=== PATIENT | female | born 1980 | race Caucasian/White ===

== ENCOUNTER 2023-06-30 10:21 | Outpatient (RCR) | payer OTHER, SELFPAY ==
[2021-10-13 14:44] LABS: Basophils Percent Auto 1.2 % (0.0-3.0); Hematocrit 37.2 % (33.0-51.0); Hemoglobin* 11.7 gm/dL (12.0-16.0); Immature Granulocytes Abs Auto 0.01 K/uL (0.00-0.30); Lymphocytes Percent Auto 26.1 % (20-44); Mean Corpuscular HGB Conc 32 gm/dL (32-36); Mean Corpuscular Hemoglobin 31 pg (26-34); Mean Corpuscular Volume 98 fL (80-100); Neutrophils Percent Auto 61.5 % (42.0-72.0); Platelet Count* 193 K/uL (140-440); RDW Coefficient of Variation % 13.2 % (11.5-15.5); Red Blood Count 3.78 m/uL (4.00-5.20); White Blood Count* 4.26 K/uL (4.50-11.00)
[2021-10-13 14:47] LABS: Slide Review Reflex No
[2021-10-13 14:57] LABS: Albumin* 4.3 g/dL (3.3-5.0)
[2021-10-13 15:00] LABS: Creatinine* 0.8 mg/dL (0.5-1.5)
[2021-10-13 15:01] LABS: Alanine Aminotransferase* 29 U/L (4-35); Alkaline Phosphatase* 67 U/L (40-150); Aspartate Amino Transferase* 36 U/L (12-35); Bilirubin Total* 0.7 mg/dL (0.1-1.5); Total Protein* 6.8 g/dL (6.0-8.3)
[2021-10-13 15:07] LABS: C Reactive Protein* < 0.5 mg/dL (0.5-1.0)
[2021-10-13 15:30] LABS: Erythrocyte SedimentationRate* 3 mm/hr (2-20)
[2021-12-04 13:14] LABS: Hemoglobin* 12.2 gm/dL (12.0-16.0); Immature Granulocytes Abs Auto 0.01 K/uL (0.00-0.30); Lymphocytes Percent Auto 30.5 % (20-44); Mean Corpuscular HGB Conc 31 gm/dL (32-36); Mean Corpuscular Hemoglobin 31 pg (26-34); Mean Corpuscular Volume 98 fL (80-100); Monocytes Percent Auto 11.3 % (0.0-11.0); Platelet Count* 188 K/uL (140-440); RDW Coefficient of Variation % 13.3 % (11.5-15.5); White Blood Count* 4.16 K/uL (4.50-11.00)
[2021-12-04 13:21] LABS: Slide Review Reflex No
[2021-12-04 13:37] LABS: Creatinine* 0.8 mg/dL (0.5-1.5); Estimated Glomerular Filt Rate 94 ml/min
[2021-12-04 13:38] LABS: Alanine Aminotransferase* 26 U/L (4-35); Aspartate Amino Transferase* 27 U/L (12-35)
[2021-12-04 13:55] LABS: C Reactive Protein* < 0.5 mg/dL (0.5-1.0)
[2021-12-04 14:32] LABS: Erythrocyte SedimentationRate* 8 mm/hr (2-20)
[2022-02-03 12:53] LABS: Basophils Percent Auto 0.8 % (0.0-3.0); Hematocrit 38.7 % (33.0-51.0); Hemoglobin* 12.3 gm/dL (12.0-16.0); Immature Granulocytes Abs Auto 0.01 K/uL (0.00-0.30); Lymphocytes Percent Auto 30.3 % (20-44); Mean Corpuscular HGB Conc 32 gm/dL (32-36); Mean Corpuscular Hemoglobin 31 pg (26-34); Mean Corpuscular Volume 97 fL (80-100); Neutrophils Percent Auto 55.6 % (42.0-72.0); Platelet Count* 190 K/uL (140-440); RDW Coefficient of Variation % 13.1 % (11.5-15.5)
[2022-02-03 12:58] LABS: Slide Review Reflex No
[2022-02-03 13:14] LABS: Alanine Aminotransferase* 24 U/L (4-35); Aspartate Amino Transferase* 29 U/L (12-35); Creatinine* 0.8 mg/dL (0.5-1.5); Estimated Glomerular Filt Rate 93 ml/min
[2022-02-03 13:24] LABS: C Reactive Protein* < 0.5 mg/dL (0.5-1.0)
[2022-02-03 14:50] LABS: Erythrocyte SedimentationRate* 5 mm/hr (2-20)
[2022-05-24 12:25] LABS: Basophils Percent Auto 0.7 % (0.0-3.0); Hematocrit 37.4 % (33.0-51.0); Hemoglobin* 11.8 gm/dL (12.0-16.0); Immature Granulocytes Pct Auto 0.7 %; Lymphocytes Percent Auto 32.9 % (20-44); Mean Corpuscular HGB Conc 32 gm/dL (32-36); Mean Corpuscular Hemoglobin 30 pg (26-34); Mean Corpuscular Volume 96 fL (80-100); Monocytes Percent Auto 12.4 % (0.0-11.0); Neutrophils Percent Auto 53.3 % (42.0-72.0); Platelet Count* 177 K/uL (140-440); Red Blood Count 3.91 m/uL (4.00-5.20); White Blood Count* 4.04 K/uL (4.50-11.00)
[2022-05-24 12:34] LABS: Slide Review Reflex No
[2022-05-24 12:56] LABS: Alanine Aminotransferase* 24 U/L (4-35); Aspartate Amino Transferase* 25 U/L (12-35); Creatinine* 0.7 mg/dL (0.5-1.5); Estimated Glomerular Filt Rate 109 ml/min
[2022-05-24 12:59] LABS: C Reactive Protein* 0.5 mg/dL (0.5-1.0)
[2022-05-24 13:18] LABS: Erythrocyte SedimentationRate* 3 mm/hr (2-20)
[2022-08-03 14:37] LABS: Basophils Absolute Auto 0.04 K/uL (0.00-0.30); Basophils Percent Auto 0.9 % (0.0-3.0); Hematocrit 37.7 % (33.0-51.0); Hemoglobin* 12.1 gm/dL (12.0-16.0); Immature Granulocytes Abs Auto 0.01 K/uL (0.00-0.30); Immature Granulocytes Pct Auto 0.2 %; Lymphocytes Absolute Auto 1.05 K/uL (0.90-2.90); Mean Corpuscular HGB Conc 32 gm/dL (32-36); Mean Corpuscular Hemoglobin 31 pg (26-34); Mean Corpuscular Volume 96 fL (80-100); Monocytes Percent Auto 10.3 % (0.0-11.0); Neutrophils Percent Auto 65.6 % (42.0-72.0); Platelet Count* 185 K/uL (140-440); RDW Coefficient of Variation % 12.8 % (11.5-15.5); Red Blood Count 3.91 m/uL (4.00-5.20); White Blood Count* 4.57 K/uL (4.50-11.00)
[2022-08-03 14:50] LABS: Slide Review Reflex No
[2022-08-03 14:51] LABS: Creatinine* 0.8 mg/dL (0.5-1.5); Estimated Glomerular Filt Rate 93 ml/min
[2022-08-03 14:52] LABS: Alanine Aminotransferase* 28 U/L (4-35); Aspartate Amino Transferase* 28 U/L (12-35)
[2022-08-03 14:55] LABS: C Reactive Protein* 0.8 mg/dL (0.5-1.0)
[2022-08-03 15:44] LABS: Erythrocyte SedimentationRate* 4 mm/hr (2-20)
[2022-11-11 11:08] LABS: Basophils Absolute Auto 0.05 K/uL (0.00-0.30); Basophils Percent Auto 0.8 % (0.0-3.0); Hemoglobin* 12.5 gm/dL (12.0-16.0); Immature Granulocytes Abs Auto 0.03 K/uL (0.00-0.30); Immature Granulocytes Pct Auto 0.5 %; Lymphocytes Absolute Auto 1.33 K/uL (0.90-2.90); Lymphocytes Percent Auto 22.1 % (20-44); Mean Corpuscular HGB Conc 32 gm/dL (32-36); Mean Corpuscular Hemoglobin 31 pg (26-34); Mean Corpuscular Volume 96 fL (80-100); Monocytes Percent Auto 11.9 % (0.0-11.0); Neutrophils Percent Auto 64.7 % (42.0-72.0); Platelet Count* 229 K/uL (140-440); RDW Coefficient of Variation % 13.1 % (11.5-15.5); Red Blood Count 4.08 m/uL (4.00-5.20); White Blood Count* 6.03 K/uL (4.50-11.00)
[2022-11-11 11:10] LABS: Slide Review Reflex No
[2022-11-11 11:24] LABS: Alanine Aminotransferase* 22 U/L (4-35); Aspartate Amino Transferase* 34 U/L (12-35); Creatinine* 0.7 mg/dL (0.5-1.5); Estimated Glomerular Filt Rate 109 ml/min
[2022-11-11 11:28] LABS: C Reactive Protein* 0.7 mg/dL (0.5-1.0)
[2022-11-11 11:46] LABS: Erythrocyte SedimentationRate* 6 mm/hr (2-20)
[2023-01-05 10:25] LABS: Basophils Percent Auto 0.7 % (0.0-3.0); Hematocrit 38.2 % (33.0-51.0); Hemoglobin* 12.2 gm/dL (12.0-16.0); Immature Granulocytes Pct Auto 0.3 %; Lymphocytes Percent Auto 22.7 % (20-44); Mean Corpuscular HGB Conc 32 gm/dL (32-36); Mean Corpuscular Hemoglobin 30 pg (26-34); Mean Corpuscular Volume 95 fL (80-100); Monocytes Percent Auto 13.3 % (0.0-11.0); Platelet Count* 170 K/uL (140-440); RDW Coefficient of Variation % 12.9 % (11.5-15.5); Red Blood Count 4.03 m/uL (4.00-5.20)
[2023-01-05 10:27] LABS: Slide Review Reflex No
[2023-01-05 10:44] LABS: Alanine Aminotransferase* 34 U/L (4-35); Aspartate Amino Transferase* 43 U/L (12-35); Creatinine* 0.7 mg/dL (0.5-1.5); Estimated Glomerular Filt Rate 109 ml/min
[2023-01-05 10:47] LABS: C Reactive Protein* 0.9 mg/dL (0.5-1.0)
[2023-01-05 11:20] LABS: Erythrocyte SedimentationRate* 4 mm/hr (2-20)
[2023-01-14 18:56] LABS: Hep A Ab, IgM Negative (Negative); Hep B Core Ab, IgM Negative (Negative); Hep B Surface Antigen Negative (Negative); Hep C Ab by CIA Index 0.05 IV; Hep C Ab by CIA Interp Negative (Negative)
[2023-03-28 12:31] LABS: Basophils Percent Auto 0.8 % (0.0-3.0); Hematocrit 39.2 % (33.0-51.0); Hemoglobin* 12.3 gm/dL (12.0-16.0); Immature Granulocytes Pct Auto 0.3 %; Lymphocytes Percent Auto 30.6 % (20-44); Mean Corpuscular HGB Conc 31 gm/dL (32-36); Mean Corpuscular Hemoglobin 30 pg (26-34); Mean Corpuscular Volume 96 fL (80-100); Monocytes Percent Auto 14.2 % (0.0-11.0); Neutrophils Percent Auto 54.1 % (42.0-72.0); Platelet Count* 177 K/uL (140-440); RDW Coefficient of Variation % 12.9 % (11.5-15.5); Red Blood Count 4.08 m/uL (4.00-5.20); Slide Review Reflex No
[2023-03-28 12:46] LABS: Aspartate Amino Transferase* 26 U/L (12-35); Creatinine* 0.8 mg/dL (0.5-1.5); Estimated Glomerular Filt Rate 93 ml/min
[2023-03-28 12:47] LABS: Alanine Aminotransferase* 22 U/L (4-35)
[2023-03-28 12:50] LABS: C Reactive Protein* 0.7 mg/dL (0.5-1.0)
[2023-03-28 13:38] LABS: Erythrocyte SedimentationRate* 3 mm/hr (2-20)
[2023-06-30 10:39] LABS: Basophils Percent Auto 0.8 % (0.0-3.0); Hematocrit 40.1 % (33.0-51.0); Hemoglobin* 12.8 gm/dL (12.0-16.0); Immature Granulocytes Pct Auto 0.3 %; Lymphocytes Percent Auto 29.6 % (20-44); Mean Corpuscular HGB Conc 32 gm/dL (32-36); Mean Corpuscular Hemoglobin 29 pg (26-34); Mean Corpuscular Volume 92 fL (80-100); Monocytes Percent Auto 12.9 % (0.0-11.0); Neutrophils Percent Auto 56.4 % (42.0-72.0); Platelet Count* 207 K/uL (140-440); RDW Coefficient of Variation % 12.8 % (11.5-15.5); Red Blood Count 4.37 m/uL (4.00-5.20); White Blood Count* 3.95 K/uL (4.50-11.00)
[2023-06-30 10:40] LABS: Slide Review Reflex No
[2023-06-30 10:50] LABS: Alanine Aminotransferase* 21 U/L (4-35); Aspartate Amino Transferase* 24 U/L (12-35); Creatinine* 0.7 mg/dL (0.5-1.5); Estimated Glomerular Filt Rate 109 ml/min
[2023-06-30 10:57] LABS: C Reactive Protein* < 0.5 mg/dL (0.5-1.0)
[2023-06-30 11:29] LABS: Erythrocyte SedimentationRate* 7 mm/hr (2-20)
== END 2024-01-18 14:45 | disposition home or self-care (01) ==
LOC: LAB 10:21
PROVIDERS: PCP Internal Medicine; Visit Provider Internal Medicine Rheumatology
DX: M06.9 Rheumatoid arthritis, unspecified (principal); Z79.899 Other long term (current) drug therapy
CPT/HCPCS: 36415; 80074; 80076; 82565; 84450; 84460; 85025; 85651; 86140; 86141; 86480

== ENCOUNTER 2023-10-06 09:31 | Outpatient (REF) | payer OTHER, SELFPAY ==
[2023-10-06 10:00] LABS: Alanine Aminotransferase* 23 U/L (4-35); Aspartate Amino Transferase* 25 U/L (12-35); Creatinine* 0.8 mg/dL (0.5-1.5); Estimated Glomerular Filt Rate 93 ml/min
[2023-10-06 10:02] LABS: Basophils Percent Auto 0.7 % (0.0-3.0); Hematocrit 39.8 % (33.0-51.0); Hemoglobin* 12.6 gm/dL (12.0-16.0); Immature Granulocytes Pct Auto 0.9 %; Lymphocytes Percent Auto 28.1 % (20-44); Mean Corpuscular HGB Conc 32 gm/dL (32-36); Mean Corpuscular Hemoglobin 29 pg (26-34); Mean Corpuscular Volume 91 fL (80-100); Monocytes Percent Auto 10.5 % (0.0-11.0); Neutrophils Percent Auto 59.8 % (42.0-72.0); Platelet Count* 207 K/uL (140-440); RDW Coefficient of Variation % 12.9 % (11.5-15.5); Red Blood Count 4.36 m/uL (4.00-5.20); White Blood Count* 4.48 K/uL (4.50-11.00)
[2023-10-06 10:03] LABS: C Reactive Protein* 0.5 mg/dL (0.5-1.0); Slide Review Reflex No
[2023-10-06 10:32] LABS: Erythrocyte SedimentationRate* 7 mm/hr (2-20)
== END 2023-10-06 09:32 | disposition home or self-care (01) ==
LOC: NPINS 09:31
PROVIDERS: PCP Internal Medicine; Visit Provider Internal Medicine Rheumatology
DX: M05.9 Rheumatoid arthritis with rheumatoid factor, unspecified (principal); D72.819 Decreased white blood cell count, unspecified; Z79.899 Other long term (current) drug therapy
CPT/HCPCS: 82565; 84450; 84460; 85025; 85651; 86140

== ENCOUNTER 2024-01-30 22:10 | Outpatient (REF) | payer OTHER, SELFPAY ==
[2024-01-30 23:07] LABS: Basophils Absolute Auto 0.04 K/uL (0.00-0.30); Basophils Percent Auto 0.8 % (0.0-3.0); Hematocrit 40.9 % (33.0-51.0); Hemoglobin* 12.9 gm/dL (12.0-16.0); Immature Granulocytes Abs Auto 0.03 K/uL (0.00-0.30); Immature Granulocytes Pct Auto 0.6 %; Lymphocytes Absolute Auto 1.06 K/uL (0.90-2.90); Lymphocytes Percent Auto 20.3 % (20-44); Mean Corpuscular HGB Conc 32 gm/dL (32-36); Mean Corpuscular Hemoglobin 29 pg (26-34); Mean Corpuscular Volume 92 fL (80-100); Monocytes Percent Auto 9.8 % (0.0-11.0); Neutrophils Absolute Auto 3.59 K/uL (1.7-7.0); Neutrophils Percent Auto 68.5 % (42.0-72.0); Platelet Count* 223 K/uL (140-440); RDW Coefficient of Variation % 13.3 % (11.5-15.5); Red Blood Count 4.46 m/uL (4.00-5.20); White Blood Count* 5.23 K/uL (4.50-11.00)
[2024-01-30 23:28] LABS: Aspartate Amino Transferase* 26 U/L (12-35); Creatinine* 0.8 mg/dL (0.5-1.5); Estimated Glomerular Filt Rate 92 ml/min
[2024-01-30 23:29] LABS: Alanine Aminotransferase* 25 U/L (4-35)
[2024-01-30 23:37] LABS: Slide Review Reflex No
[2024-01-30 23:44] LABS: C Reactive Protein* < 0.5 mg/dL (0.5-1.0)
[2024-01-31 00:11] LABS: Erythrocyte SedimentationRate* 4 mm/hr (2-20)
== END 2024-01-30 22:11 | disposition home or self-care (01) ==
LOC: NPINS 22:10
PROVIDERS: PCP Internal Medicine; Visit Provider Internal Medicine Rheumatology
DX: M05.9 Rheumatoid arthritis with rheumatoid factor, unspecified (principal); D72.819 Decreased white blood cell count, unspecified; Z79.899 Other long term (current) drug therapy
CPT/HCPCS: 82565; 84450; 84460; 85025; 85651; 86140

== ENCOUNTER 2024-04-12 15:12 | Outpatient (REF) | payer OTHER, SELFPAY ==
[2024-04-12 17:12] LABS: Basophils Percent Auto 1.4 % (0.0-3.0); Eosinophils Percent Auto 0.5 % (0.0-7.0); Hematocrit 44.8 % (33.0-51.0); Immature Granulocytes Pct Auto 0.2 %; Mean Corpuscular HGB Conc 31 gm/dL (32-36); Mean Corpuscular Hemoglobin 29 pg (26-34); Mean Corpuscular Volume 92 fL (80-100); Monocytes Percent Auto 10.6 % (0.0-11.0); Neutrophils Percent Auto 57.3 % (42.0-72.0); Platelet Count* 206 K/uL (140-440); RDW Coefficient of Variation % 13.2 % (11.5-15.5); Red Blood Count 4.88 m/uL (4.00-5.20); White Blood Count* 4.34 K/uL (4.50-11.00)
[2024-04-12 17:16] LABS: Slide Review Reflex No
[2024-04-12 17:31] LABS: Creatinine* 0.8 mg/dL (0.5-1.5); Estimated Glomerular Filt Rate 92 ml/min
[2024-04-12 17:32] LABS: Alanine Aminotransferase* 22 U/L (4-35); Aspartate Amino Transferase* 22 U/L (12-35)
[2024-04-12 17:42] LABS: Erythrocyte SedimentationRate* 2 mm/hr (2-20)
[2024-04-12 17:53] LABS: C Reactive Protein* < 0.5 mg/dL (0.5-1.0)
[2024-04-15 06:04] LABS: QuantiFERON Mitogen minus NIL 9.76 IU/mL; QuantiFERON NIL 0.24 IU/mL; Quantiferon TB Gold Plus Negative (Negative)
== END 2024-04-12 15:13 | disposition home or self-care (01) ==
LOC: NPINS 15:12
PROVIDERS: Internal Medicine Rheumatology; PCP Internal Medicine; Visit Provider Internal Medicine
DX: D72.819 Decreased white blood cell count, unspecified (principal); Z79.899 Other long term (current) drug therapy
CPT/HCPCS: 82565; 84450; 84460; 85025; 85651; 86140; 86480

== ENCOUNTER 2024-07-17 14:43 | Outpatient (CLI) | payer OTHER, SELFPAY ==
[2024-07-17 21:50] LABS: Basophils Absolute Auto 0.03 K/uL (0.00-0.30); Basophils Percent Auto 0.5 % (0.0-3.0); Hematocrit 39.5 % (33.0-51.0); Hemoglobin* 12.8 gm/dL (12.0-16.0); Immature Granulocytes Abs Auto 0.03 K/uL (0.00-0.30); Immature Granulocytes Pct Auto 0.5 %; Lymphocytes Absolute Auto 1.23 K/uL (0.90-2.90); Lymphocytes Percent Auto 22.1 % (20-44); Mean Corpuscular HGB Conc 32 gm/dL (32-36); Mean Corpuscular Hemoglobin 30 pg (26-34); Mean Corpuscular Volume 91 fL (80-100); Monocytes Percent Auto 10.3 % (0.0-11.0); Neutrophils Percent Auto 66.6 % (42.0-72.0); Platelet Count* 235 K/uL (140-440); RDW Coefficient of Variation % 13.1 % (11.5-15.5); Red Blood Count 4.32 m/uL (4.00-5.20); White Blood Count* 5.56 K/uL (4.50-11.00)
[2024-07-17 21:52] LABS: Alanine Aminotransferase* 24 U/L (4-35); Aspartate Amino Transferase* 23 U/L (12-35); Creatinine* 0.8 mg/dL (0.5-1.5); Estimated Glomerular Filt Rate 92 ml/min
[2024-07-17 22:22] LABS: C Reactive Protein* < 0.5 mg/dL (0.5-1.0)
[2024-07-17 22:41] LABS: Slide Review Reflex No
[2024-07-18 00:23] LABS: Erythrocyte SedimentationRate* 5 mm/hr (2-20)
== END 2024-07-17 14:44 | disposition home or self-care (01) ==
LOC: NPINS 14:43
PROVIDERS: PCP Internal Medicine; Referring Provider Internal Medicine; Visit Provider Internal Medicine Rheumatology
DX: Z79.899 Other long term (current) drug therapy (principal)
CPT/HCPCS: 82565; 84450; 84460; 85025; 85651; 86140

== ENCOUNTER 2024-10-30 06:59 | Outpatient (CLI) | payer OTHER, SELFPAY ==
--- NOTE | 2024-10-30 07:15 | CRLHL7_ITS ---
For Patients: As a result of the Century Cures Act, medical imaging exams and procedure reports are released immediately into your electronic medical record. You may view this report before your referring provider. If you have questions, please contact your health care provider. Indication: Low back pain Technique: Multiplanar, multisequence, MRI of the lumbar spine, obtained without contrast. Comparison: Lumbar spine x-ray 10/19/2024 Findings: Accentuated lumbar lordosis, with grade 1 anterolisthesis at L4-5, secondary to chronic bilateral L4 spondylolysis. No acute osseous abnormality, or suspicious bone marrow lesion. The conus medullaris terminates at L1. Partially visualized small T2 hyperintense/cystic focus within the right hepatic lobe. No suspicious findings in the paravertebral soft tissues. Included SI joints are unremarkable. T12-L1 through L3-L4: No neural foraminal or spinal canal stenosis. L4-L5: Disc unroofing/bulge, left subarticular/foraminal cranial disc extrusion, facet arthropathy. Moderate left and severe right neural foraminal stenosis with likely impingement of the exiting right L4 nerve root. No spinal canal stenosis. L5-S1: Mild diffuse disc bulge with central disc protrusion contacting but not frankly impinging the descending left S1 nerve root along the lateral recess. Mild facet arthropathy. No neural foraminal or central spinal canal stenosis. Impression: 1. At L4-L5, chronic bilateral L4 spondylolysis, grade 1 anterolisthesis, disc unroofing/bulge and right subarticular-foraminal cranial disc extrusion contribute to moderate left and severe right neural foraminal stenosis with likely impingement of the exiting right L4 nerve root. 2. At L5-S1, central disc protrusion contacts but does not frankly impinge the descending left S1 nerve root along the lateral recess. Dictated by Marie Reis MD @ 10/30/2024 1:38:06 PM (Electronically Signed)
== END 2024-10-30 07:00 | disposition home or self-care (01) ==
PROVIDERS: PCP Nurse Practitioner Family; Visit Provider Nurse Practitioner Family
DX: M54.50 Low back pain, unspecified (principal); M47.896 Other spondylosis, lumbar region; M51.27 Other intervertebral disc displacement, lumbosacral region; M48.061 Spinal stenosis, lumbar region without neurogenic claudication; M51.369 Other intervertebral disc degeneration, lumbar region without mention of lumbar back pain or lower extremity pain
CPT/HCPCS: 72148

== ENCOUNTER 2024-11-13 04:37 | Outpatient (CLI) | payer OTHER, SELFPAY | END 2024-11-13 04:38 | disposition home or self-care (01) | PROVIDERS: PCP Nurse Practitioner Family; Visit Provider Nurse Practitioner Family | DX: M54.50 Low back pain, unspecified (principal); M54.16 Radiculopathy, lumbar region; G89.29 Other chronic pain | CPT/HCPCS: 82565; 84450; 84460; 85025; 85651; 86140 ==

== ENCOUNTER 2024-11-20 09:46 | Outpatient (CLI) | payer OTHER, SELFPAY | END 2024-11-20 09:47 | disposition home or self-care (01) | LOC: INJ CL 09:47 | PROVIDERS: PCP Nurse Practitioner Family; Visit Provider Family Medicine | DX: M54.16 Radiculopathy, lumbar region (principal); M51.26 Other intervertebral disc displacement, lumbar region | CPT/HCPCS: 64483; J1100; Q9966 ==

== ENCOUNTER 2024-12-11 08:18 | Outpatient (CLI) | payer OTHER, SELFPAY | END 2024-12-11 08:19 | disposition home or self-care (01) | LOC: INJ CL 08:19 | PROVIDERS: PCP Nurse Practitioner Family; Visit Provider Family Medicine | DX: M54.16 Radiculopathy, lumbar region (principal); M51.26 Other intervertebral disc displacement, lumbar region | CPT/HCPCS: 64483; J0702; Q9966 ==

== ENCOUNTER 2024-12-25 08:48 | Outpatient (CLI) | payer OTHER, SELFPAY ==
[2024-12-27 02:32] LABS: HPV Source Vaginal
[2024-12-29 12:10] LABS: Pap Test Digital Imaging Done
== END 2024-12-25 08:49 | disposition home or self-care (01) ==
PROVIDERS: PCP Nurse Practitioner Family; Visit Provider Nurse Practitioner Family
DX: L65.9 Nonscarring hair loss, unspecified (principal); E66.9 Obesity, unspecified; M06.9 Rheumatoid arthritis, unspecified; R60.0 Localized edema; Z13.21 Encounter for screening for nutritional disorder; Z13.0 Encounter for screening for diseases of the blood and blood-forming organs and certain disorders involving the immune mechanism; Z13.6 Encounter for screening for cardiovascular disorders; Z13.9 Encounter for screening, unspecified
CPT/HCPCS: 80053; 80061; 82306; 84443; 85025; 86376; 87624; 87625; 88141; 88142; 88175

== ENCOUNTER 2025-03-05 08:01 | Outpatient (CLI) | payer OTHER, SELFPAY | END 2025-03-05 08:02 | disposition home or self-care (01) | PROVIDERS: PCP Nurse Practitioner Family; Visit Provider Nurse Practitioner Family | DX: Z01.818 Encounter for other preprocedural examination (principal); M06.9 Rheumatoid arthritis, unspecified; Z11.9 Encounter for screening for infectious and parasitic diseases, unspecified | CPT/HCPCS: 80053; 85025; 85651; 86140; 86480 ==